=== PATIENT | male | born 1980 | race African-American/Black ===

== ENCOUNTER 2017-11-09 13:15 | Emergency (ER) | payer SELFPAY ==
--- NOTE | 2017-11-09 13:29 | EDPHY ---
H & P Time Seen by Provider: 11/09/17 13:24 HPI/ROS: CHIEF COMPLAINT: Nausea and vomiting HISTORY OF PRESENT ILLNESS: Awakened this morning at 4:45 a.m. with multiple episodes of nausea and vomiting. Symptoms severe but not associated with hematemesis or coffee-ground emesis. He has severe generalized abdominal cramping with vomiting but otherwise no abdominal pain or male symptoms. Not associated with hematuria or dysuria or diarrhea. No recent injury or trauma. No headache. He went to [facility] had normal saline and Toradol and Zofran and presents here because he is still symptomatic. He tells me he had labs performed there but I am not able to access them and they were not sent here with him. REVIEW OF SYSTEMS: Eye: no change in vision ENT: no sore throat Cardiac: no chest pain or syncope Pulmonary: no cough or SOB Abdomen: HPI Musculoskeletal: no back pain or neck pain Skin: no rash Neuro: no headache Constitutional: no fever : no urinary symptoms A comprehensive 10 point review of systems is otherwise negative aside from elements mentioned in the history of present illness. PAST MEDICAL HISTORY: Negative, no previous surgical history Social history: Alcohol last night but infrequent, daily marijuana General Appearance: Alert and conversant, cooperative. Eyes: No scleral icterus. ENT, Mouth: Dry mucous membranes Respiratory: Normal respiratory effort, breath sounds equal, lungs are clear to auscultation. Cardiovascular: Regular rate and rhythm. Gastrointestinal: Abdomen is soft and non tender. Normal male . Bowel sounds present. Not distended. No focal tenderness including nontender McBurney's point. No hernia. Neurological: Alert, face symmetric, normal motor and sensory in extremities. Skin: Warm and dry, no rashes. Musculoskeletal: No peripheral edema. Psychiatric: Moderately anxious. Emergency Department course/MDM: Normal saline 1 L IV, repeat labs to include CBC chemistry lipase and LFTs. Currently does not have acute surgical abdominal exam. Haldol 2.5 mg IV, Benadryl 50 mg IV. 1508: Abdomen soft and nontender, not actively vomiting, interested in going home, will discharged with nausea medication. WBC noted probably from symptoms of nausea and vomiting. Bicarbonate slightly low consistent with dehydration. Smoking Status: Never smoked Constitutional: Initial Vital Signs Temperature (C) 36.8 C 11/09/17 13:19 Heart Rate 54 L 11/09/17 13:19 Respiratory Rate 20 11/09/17 13:19 Blood Pressure 111/69 11/09/17 13:19 O2 Sat (%) 98 11/09/17 13:19 O2 Delivery Mode Room Air Allergies/Adverse Reactions: acetaminophen [From Tylenol-Codeine] Allergy (Verified 11/09/17 13:19) codeine [From Tylenol-Codeine] Allergy (Verified 11/09/17 13:19) Home Medications: Medication Instructions Recorded Ondansetron Odt [Zofran Odt] 4 mg PO Q4PRN #6 tab 11/09/17 Medical Decision Making Differential Diagnosis: Differential diagnosis considered for nausea and vomiting including but not limited to gastroenteritis, gastritis, appendicitis, and medication side effect. - Data Points Laboratory Results: Laboratory Results 11/09/17 13:35 11/09/17 13:35 11/09/17 11/09/17 13:35 13:35 WBC 19.38 10^3/uL H 10^3/uL (3.80-9.50) RBC 5.01 10^6/uL 10^6/uL (4.40-6.38) Hgb 15.1 g/dL g/dL (13.7-17.5) Hct 43.3 % % (40.0-51.0) MCV 86.4 fL fL (81.5-99.8) MCH 30.1 pg pg (27.9-34.1) MCHC 34.9 g/dL g/dL (32.4-36.7) RDW 12.2 % % (11.5-15.2) Plt Count 225 10^3/uL 10^3/uL (150-400) MPV 11.5 fL fL (8.7-11.7) Neut % (Auto) 90.2 % H % (39.3-74.2) Lymph % (Auto) 1.4 % L % (15.0-45.0) [place] % (Auto) 7.7 % % (4.5-13.0) Eos % (Auto) 0.0 % L % (0.6-7.6) Baso % (Auto) 0.2 % L % (0.3-1.7) Nucleat RBC Rel Count 0.0 % % (0.0-0.2) Absolute Neuts (auto) 17.49 10^3/uL H 10^3/uL (1.70-6.50) Absolute Lymphs (auto) 0.27 10^3/uL L 10^3/uL (1.00-3.00) Absolute Monos (auto) 1.49 10^3/uL H 10^3/uL (0.30-0.80) Absolute Eos (auto) 0.00 10^3/uL L 10^3/uL (0.03-0.40) Absolute Basos (auto) 0.04 10^3/uL 10^3/uL (0.02-0.10) Absolute Nucleated RBC 0.00 10^3/uL 10^3/uL (0-0.01) Immature Gran % 0.5 % % (0.0-1.1) Immature Gran # 0.09 10^3/uL 10^3/uL (0.00-0.10) Sodium 145 mEq/L mEq/L (135-145) Potassium 4.3 mEq/L mEq/L (3.5-5.2) Chloride 111 mEq/L H mEq/L (97-110) Carbon Dioxide 17 mEq/l L mEq/l (22-31) Anion Gap 17 mEq/L H mEq/L (8-16) BUN 17 mg/dL mg/dL (7-23) Creatinine 1.1 mg/dL mg/dL (0.7-1.3) Estimated GFR > 60 Glucose 118 mg/dL H mg/dL (70-100) Calcium 9.3 mg/dL mg/dL (8.5-10.4) Total Bilirubin 1.2 mg/dL mg/dL (0.1-1.4) Conjugated Bilirubin 0.4 mg/dL mg/dL (0.0-0.5) Unconjugated Bilirubin 0.8 mg/dL mg/dL (0.0-1.1) AST 23 IU/L IU/L (17-59) ALT 27 IU/L IU/L (21-72) Alkaline Phosphatase 65 IU/L IU/L (38-126) Total Protein 7.4 g/dL g/dL (6.3-8.2) Albumin 4.2 g/dL g/dL (3.5-5.0) Lipase 29 IU/L IU/L (23-300) Medications Given: Discontinued Medications Diphenhydramine HCl (Benadryl Injection) 50 mg IVP EDNOW ONE Stop: 11/09/17 13:35 Last Admin: 11/09/17 13:41 Dose: 50 mg Haloperidol Lactate (Haldol Injection) 2.5 mg IVP EDNOW ONE Stop: 11/09/17 13:35 Last Admin: 11/09/17 13:41 Dose: 2.5 mg Sodium Chloride (Ns) 1,000 mls @ 0 mls/hr IV EDNOW ONE; Wide Open PRN Reason: Protocol Stop: 11/09/17 13:34 Last Admin: 11/09/17 13:41 Dose: 1,000 mls Sodium Chloride (Ns) 1,000 mls @ 0 mls/hr IV EDNOW ONE; Wide Open PRN Reason: Protocol Stop: 11/09/17 14:10 Last Admin: 11/09/17 14:59 Dose: 1,000 mls Departure - Departure Clinical Impression: Nausea & vomiting Qualifiers: Vomiting type: unspecified Vomiting Intractability: non-intractable Qualified Code(s): R11.2 - Nausea with vomiting, unspecified Condition: Good Instructions: Acute Nausea and Vomiting (ED) Referrals: Ana Luisa Negron MD [Medical Doctor] - As per Instructions
[2017-11-09] MEDS ORDERED: NS 1,000 ML IV ONE ×2 (13:33→14:09)
[2017-11-09] MEDS ORDERED: HALOPERIDOL LACT 5 MG/ML INJ IVP ONE (13:34)
[2017-11-09 13:48] LABS: PLATELET COUNT 225 10^3/uL (150-400)
[2017-11-09 15:38] VITALS: BP 130/81; PULSE 73; RESP 16; TEMP 96.8; O2SAT 98
== END 2017-11-09 15:38 | disposition home or self-care (01) ==
DX: R11.2 Nausea with vomiting, unspecified (principal); E86.9 Volume depletion, unspecified
CPT/HCPCS: 96374; J1200; J1630